=== PATIENT | male | born 2005 | race Caucasian/White ===

== ENCOUNTER 2025-07-12 15:37 | Emergency (ER) | payer BC, SELFPAY ==
--- OUTSIDE RECORDS SUMMARY | 2025-07-12 15:38 | XMS_ITS | Encounter Summary ---
Author Organization [place] Address [facility] [place] [address] Care Team Providers Care Belt Glass Sander Name Role Phone Libby Juan MD Primary Care Provider Unavailable Clinic, [facility] Primary Care Pr ovider Unavailable Encounter Details Date Type Department Care Team (Late st Contact Info) Description 2003 [facility] [address] [place] [address] Libby Juan MD NO LONGER AT [facility]/UNABLE TO LOCATE 10/31/23 ER ENCOUNTER (Primary Dx) Social History Tobacco Use Types Packs/Day Years Used Date Smoking Tobacco: Former Alcohol Use Standard Drinks/Week Comments Not Asked 0 (1 standard drink = 0.6 oz pur e alcohol) Sex and Gender Information Value Date Recorded Sex Assigned at Not on file 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 HISTORY OF PRESENT ILL NESS: A 7-month-old male patient started vomiting at 9 a.m. yesterday. Has had two or three vomitin g spells in the last 24 hours and two to three episodes of loose watery diarrhea stool. He developed new onset fever within the last 24 hours as well. His 2 1/2-year-old brother is also being seen at the same time with an upper respiratory tract viral illness associated with high fever and is influen za positive. Ramy in general is still fairly happy and smiling. He has had runny nose and light c ough as well. He is taking Pedialyte without difficulty. He is having wet diapers and has had no re cent emesis. He comes in to the Emergency Department along with his brother for workup. REVIEW OF S YSTEMS: There have been wet diapers. He is taking down Pedialyte. Mother says he also has been fidencio ping down some solid foods in the last few hours. He does have intermittent fever. He does have run ny nose and cough. Remainder of the review of systems is negative. Past medical history is negative . Immunizations are up to date. Medications are none other than Tylenol. ALLERGIES: NONE. SOCIAL HISTORY: Here with mother, grandmother, and his sick sibling brother who is 2 1/2 years of age. He is not in day care. EXAM: Temperature is 102.0, respiratory rate 32, pulse 132. GENERAL: He is re sting comfortably and is smiling. EYES: Pupils are equal and reactive to light. Extraocular muscle s are intact. OROPHARYNX some mild erythema. TYMPANIC MEMBRANES normal. CHEST: Lungs are clear. C ARDIOVASCULAR: Heart is in a regular rate and rhythm. ABDOMEN is benign. : Normal male external genitalia, noncircumcised. Testicles descended bilaterally. No evidence of significant dermatitis. HOSPITAL COURSE: Influenza testing was performed which is positive. His RSV was negative. Given the fact that he is under 1 year of age. He is not a candidate for amantadine or Tamiflu. FINAL ELICEO GNOSIS: Influenza A. DISPOSITION PLAN: Increase fluids, Tylenol and/or ibuprofen p.r.n. fever. Re turn to the Emergency Department signs or symptoms of increased respiratory distress or dehydration a s described. [id number] _ FIFI TURNER MD MT: Document: [id number] [place], [place] Name: RAMY BRAN EMERGENCY ROOM ENCOUNTER Page 2 of 2 LCN: JACKIE DSC: 2003 [facility] Name: MR#: : Admit Date: RAMY BRAN [id number] 2003 2003 Doctor: SARA TURNER MD EMERGENCY ROOM ENCOUNTER Page 1 of 2 Electronically filed by Jyothi Hubbard 4:16 PM documented in this encounter Plan of Treatment Not on file documented as of this encounter Visit Diagnoses Diagnosis ER ENCOUNTER- Primary documented in this encounter Care Teams Belt Glass Sander Relationship Specialty Start Date End Date Libby Juan MD NO LONGER AT [facility]/UNABLE TO LOCATE 10/31/23 PCP - General 03 08/23/21 [facility], [facility] NO LONGER AT [facility]/UNABLE TO LOCATE 10/31/23 PCP - General 08/24/21 02/18/23 documented as of this encounter
--- OUTSIDE RECORDS SUMMARY | 2025-07-12 15:38 | XMS_ITS | Clinical Summary ---
Author Organization [facility] Address [address] [place] [address]. [place] [address] Care Team Providers Care Overcoiler Name Role Phone Unavailable Primary Care Provider Unavailabl e Allergies Active Allergy Reactions Criticality Noted Date Comments No Known Allergies 11/27/2004 Medications TYLENOL DROPS SOLN 100 MG/ML OR prn 0 3 Active ALBUTEROL SULFATE 2 MG/5ML OR SYRP 2 cc po TID for cough, wheeze 3 oz 0 4 Active DUONEB 2.5-0.5 MG/3ML IN SOLN 1 vial now 1 0 5 Active ALBUTEROL SULFATE 0.083 % IN NEBU 1 vial via neb q 4-6 hours PRN 50 1 5 Active POLYTRIM 21428-3.1 UNIT/ML-% OP SOLN 2 drops to affected eye qid times 7 days qs 0 5 Active naloxone (NARCAN) 4 MG/0.1ML nasal spray [place] 1 spray (4 mg) into one nostril alternating nostrils once as needed for opioid reversal every 2-3 minutes until assistance arrives 0.2 mL 1 Active Immunizations Immunization Administration Dates Next Due Comvax (HIB/HepB) 07/29/2004,2003,07/12/20 03 DTAP (<7y) 07/29/2004,2003,2003 Influenza (IIV3) PF 01/14/2007 MMR (MMRII) 07/29/2004 Pneumococcal (PCV 7) 04/27/2005,2003,07/12 Poliovirus, inactivated (IPV) 07/29/2004, 003,2003 Varicella (Varivax) 07/29/2004 Social History Tobacco Use Types Packs/Day Years Used Date Smoking Tobacco: Former Alcohol Use Standard Drinks/Week Comments Not Asked 0 (1 standard drink = 0.6 oz pur e alcohol) Adolescent Education Answer Date Record ed Getting School Help Needed Not on file 08/30 Sex and Gender Information Value Date Recorded Sex Assigned at Not on file 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 Gender Identity Not on file Sexual Orientation Not on file Last Filed Vital Signs Vital Sign Reading Time Taken Comments Blood Pressure 113/69 08/24/2021 1:45 AM CDT Pulse 95 08/24/2021 1:45 AM CDT Temperature 36.7 C (98 F) 08/23/2021 11:28 PM CDT Respiratory Rate 13 08/24/2021 1:30 AM CDT Oxygen Saturation 94% 08/24/2021 1:45 AM CDT Inhaled Oxygen Concentration - - Weight 15.6 kg (34 lb 5 oz) 12/23/2006 1:[address] Height 99.1 cm (3' 3) 12/23/2006 1:00 PM ECMO SPECIALIST Body Mass Index 15.86 12/23/2006 1:00 PM ECMO SPECIALIST Plan of Treatment Not on file Insurance * Guarantor: DIANNE Account Type Relation to Patient Date of Phone Billing Address Personal/Family [facility], [place] [address] [facility]
--- OUTSIDE RECORDS SUMMARY | 2025-07-12 15:38 | XMS_ITS | Clinical Summary ---
Author Organization [facility] Address [address] [place] [id number] Care Team Providers Care Interventional Tech Name Role Phone [facility] Primary Care Provider Unavailabl e Allergies No known active allergies Medications escitalopram oxalate 5 mg tabletIndication s:Anxiety Take 1 Tablet (5 mg) by mouth once daily in the morning. 30 Tablet 11 02/20/2025 4:34 PM CDT 02/19/2025 Active Active Problems Problem Noted Date Diagnosed Date ADHD (attention deficit hyperactivity disorder) 01/05/2011 Anxiety disorder 01/05/2011 Resolved Problems Problem Noted Date Diagnosed Date Resolved Date Opiate overdose, accidental or unintentional, initial encounter 07/20/2022 07/20/2022 Assessment & Plan (07/20/2022 9:07 AM CDT): Patient reports this was an accidental OD when he was doing stupid stuff with my friends. He denies Opiate dependence. He is not suicidal and states this is not a concern. Problem resolved. School problem 06/22/2013 07/20/2022 Overview (06/22/2013): 06/22/13 Has had PDD diagnosis in past. Per mom, significant changes since previous evaluation. Still has IEP at school for behavior issues. Per mom's report and chart review, also had Attention Deficit Hyperactivity Disorder and anxiety diagnoses in past. No medications. No counseling. Evaluation several years ago. Still some difficulties with school. Recommend evaluation with Dr Noriega for Attention Deficit Hyperactivity Disorder, QEEG. Encounters for other specifi ed administrative purpose(V68.89) 07/06/2012 07/20/2022 Encounters Date Type Department Care Team Description 2025 4:30 PM CDT Nurse/Clinic Staff Only [facility] [address] [place] [address] Immunization/Injectio n (2nd HPV); Immunization/Injectio n 2025 Travel from Last 3 Months Immunizations Immunization Administration Dates Next Due AMB Influenza, IIV3 (Age >=3 years) Preserve Free (Flu Clinic Only) 08/27/2011 AMB Influenza, IIV3 (Age >=3 years)(Flu Clinic Only) 08/10/2013,11/27/2012,09/03/2010 DTaP 07/05/2008, 4,2003,07/12 HIB-HepB (Comvax) 07/29/2004,2003,07/12/20 03 HPV 9 (Gardasil 9) 2025,02/19/2025 Hepatitis A (Peds) 07/14/2018,08/16/2016 Inactivated Polio Vaccine 07/05/2008,,2003,07/12 Influenza A (H1N1), Inactivated 11/05/2009,10/04 Influenza A (H1N1), Inactiva chris (Age >=3 Years) 10/04/2009 Influenza A (H1N1), Live Intranasal 11/05/2009 Influenza Virus, Unspecified 01/14/2007 Influenza, IIV3 (Age >=3 years) 09/12/2007,12/23,09/28/2004 Influenza, IIV4 08/05/2015 MENINGOCOCCAL VACCINE 2 VIAL 2MO-55YO (MENVEO) 07/05/2019,08/16/2016 MMR 07/05/2008,07/29/2004 Pneumococcal conj 7-Valent (Prevnar 7) 5,2003,2003 Tdap 08/16/2016 Varicella Vaccine 07/05/2008,07/29/2004 Family History Medical History Relation Name Comments Genetic Other neg Relation Name Status Comments Other Social History Tobacco Use Types Packs/Day Years Used Date Smoking Tobacco: Never Smokeless Tobacco: Never Tobacco Cessation:Counseling Given: Not Answered Comments:non smoking home Alcohol Use Standard Drinks/Week Comments No 0 (1 standard drink = 0.6 oz pur e alcohol) PHQ-2 Answer Date Recorded PHQ-2 TOTAL SCORE 3 02/19/2025 Social Connections Answer Date Recorded Do you often feel lonely or isolated from those around you? 0 02/18/2025 Financial Resource Strain Answer Date R ecorded Difficulty of Paying Living Expenses 3 02/18/2025 Difficulty of Paying Living Expenses Not on file 02/18/2025 Food Insecurity Answer Date Recorded Do you worry your food will run out before you are able to buy more? 1 02/18/2025 Transportation Needs Answer Date Record ed Does lack of transportation keep you from medica l appointments? 1 02/18/2025 Does lack of transportation keep you from work, meetings or getting things that you need? 1 02/18/2025 Housing Stability Answer Date Recorded What is your housing situation today? 1 02/18/2025 Utilities Answer Date Recorded Do you have trouble paying f or utilities (for example, heat, electricity, water, phone)? 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 Gender Identity Not on file Sexual Orientation Not on file Obstetrics History Last Filed Vital Signs Vital Sign Reading Time Taken Comments Blood Pressure 136/80 02/19/2025 2:24 PM CDT Pulse 76 02/19/2025 2:24 PM CDT Temperature 36.6 C (97.8 F) 11/02/2019 1:42 PM SCHOOL PSYCHOMETRIST Respiratory Rate 14 07/20/2022 8:48 AM CDT Oxygen Saturation 98% 02/26/2016 10: 41 AM CDT Inhaled Oxygen Concentration - - Weight 96.5 kg (212 lb 12.8 oz) 02/19/2025 2:24 PM CDT Height 184.1 cm (6' 0.48) 02/19/2025 2:24 PM CD T Body Mass Index 28.48 02/19/2025 2:24 PM CDT Plan of Treatment Health Maintenance Due Date Last Done Comments COVID-19 vaccine series (1 - 2023- season) 2024 Influenza Vaccine (#1) 2025 5, 08/10/2013, 11/27/2012, Additional history exists HPV series for age 9-26 (3 - Male 3-dose series) 08/21/2025 2025, 02/19/2025 BMI (ht and wt on same day) for age 18+ 02/19/2026 02/19/2025, 07/20/2022, 08/26/2021 Depression screening for age 12+ 02/20/2026 02/20/2025, 02/19/2025, 07/20/2022, Additional history exists Tetanus booster 08/16/2026 08/16/2016 Hepatitis B series for 19+ Completed 07/29, 2003, 2003 Pneumococcal series for age 6-49 Aged Out 04/27/2005, 2003, 2003 No longer eligible based on patient's age to complete this topic HIV for age 15-65 Completed 02/19/2025 Hepatitis C screening for age 18-79 Completed 02/19/2025 Procedures Procedure Name Priority Date/Time Associated Diagnosis Comments ANTI HIV 1/2 Routine 02/19/2025 3:13 PM CDT Screening for HIV (human immunodeficiency virus) ANTI HCV Routine 02/19/2025 3:13 PM CDT Encounter for hepatitis C screening test for low risk patient from Last 3 Months or Most Recently Relevant to Health Maintenance Results * ANTI HCV (02/19/2025 3:13 PM CDT) HEPATITIS C ANTIBODY NON-REACTI VE NON-REACT MIYA [employer] Comment: HCV antibody was non-reactive. There is no laboratory evidence of HCV infection. In most cases, no further action is required. However, if recent HCV exposure is suspected, a test for HCV RNA (test code 20949) is suggested. For additional information please refer to http://education.MixGenius/faq/TWZ97u4 (This link is being provided for informational/ educational purposes only.) Blood BLOOD SPECIMEN / Unknown 02/19/2025 3:13 PM CDT 02/19/2025 3:14 PM CDT Prashant Cobb MD SEND OUTS Final Resul t [employer] [facility] [address] [place] [address], [employer] [address] [place] [address] * ANTI HIV 1/2 (02/19/2025 3:13 PM CDT) [facility] HIV AG/AB, 4TH GEN NON-REACT MIYA NON-REACT MIYA [employer] Comment: HIV-1 antigen and HIV-1/HIV-2 antibodies were not detected. There is no laboratory evidence of HIV infection. PLEASE NOTE: This information has been disclosed to you from records whose confidentiality may be protected by state law. If your state requires such protection, then the state law prohibits you from making any further disclosure of the information without the specific written consent of the person to whom it pertains, or as otherwise permitted by law. A general authorization for the release of medical or other information is NOT sufficient for this purpose. For additional information please refer to http://education.TravelMuse.Whisk/faq/UFJ866 (This link is being provided for informational/ educational purposes only.) The performance of this assay has not been clinically validated in patients less than 2 years old. Blood BLOOD SPECIMEN / Unknown 02/19/2025 3:13 PM CDT 02/19/2025 3:14 PM CDT Prashant Cobb MD SEND OUTS Final Resul t [employer] [facility] [address] [facility] [place] [address], [place] [phone] [employer] [address] [place] [address] from Last 3 Months or Most Recently Relevant to Health Maintenance Insurance [employer] Advance Directives * Full Code (Latest Code Status on File) Date Activated Date Inactivated Comments 09/26/2007 9:26 AM 09/26/2007 4:48 PM Care Teams Interventional Tech Relationship Specialty Start Date End Date Jose Maria Luevano PCP - General 02/20/18
[2025-07-12 15:39] VITALS: BP 133/84; PULSE 82; RESP 18; TEMP 37; O2SAT 99; BMI 30.7
--- NOTE | 2025-07-12 17:03 | ED.GENADULT ---
HPI - General Adult General Date Seen: 07/12/25 Chief complaint: Laceration/Wound Stated complaint: busted lip Time Seen by Provider: 07/12/25 16:01 History of Present Illness HPI narrative: this is a pleasant generally healthy 20-year-old male. He is pretty confident he is up-to-date with his tetanus and he believes he just had his shots updated a few months ago when he had a checkup. He presents to the ER today with an accidental laceration to the right side of his upper lip. He was working under his car today when arrange slipped and hit him in the upper lip. He suffered a vertical laceration in the upper lip that crosses from the skin onto the pink part of the lip. There is a small bump on the mucosal surface of the upper lip but not really a through and through laceration. Fortunately, he does not think he injured any of his teeth or his facial bones. No loss of consciousness. Bleeding was controlled easily by direct pressure. Because the wound was gaping, his family encouraged him to come to the ER to get stitches. Related Data Home Medications ?Medication ?Instructions ?Recorded ?Confirmed No Known Home Medications 07/12/25 07/12/25 Allergies Allergy/AdvReac Type Severity Reaction Status Date / Time No Known Drug Allergies Allergy Verified 07/12/25 15:43 Exam Narrative: Exam Narrative: Constitutional: Appears well-developed and well-nourished. Alert. Conversant. Non toxic. HENT: Head: No depressed skull fracture, Raccoon Eyes, Barton's sign Nose: Nose normal. Mouth/Throat: Oral mucosa is clear and moist. no trismus. Pharynx normal. Tonsils symmetric. No tonsillar enlargement, erythema, or exudate. Teeth are normal in appear to be uninjured. Gums are normal. On the upper lip there is a small mucosal scratch but not really a laceration. On the external portion of the upper lip, to the right of midline, there is a 1.5 cm vertical laceration. The lateral edge of the wound is little bit macerated with some small bits of skin. The wound does cross the vermilion border onto the pink part of the lip. The wound is gaping about 3-4 mm at the center of the wound. No other injuries. Eyes: Conjunctivae normal. EOM normal. Pupils equal, round, and reactive to light. No scleral icterus. Neck: Normal range of motion. Neck supple. No tracheal deviation present. Cardiovascular: Normal rate, regular rhythm. Normal cap refill Pulmonary/Chest: Effort normal. No stridor. No respiratory distress. Musculoskeletal: RUE: Normal range of motion. No tenderness. No deformity LUE: Normal range of motion. No tenderness. No deformity RLE: Normal range of motion. No edema. No tenderness. No deformity LLE: Normal range of motion. No edema. No tenderness. No deformity Neurological: Alert and oriented to person, place, and time. Normal strength. CN II-VII intact. No sensory deficit. GCS eye subscore is 4. GCS verbal subscore is 5. GCS motor subscore is 6. Normal coordination Skin: Skin is warm and dry. No rash noted. No pallor. Normal capillary refill. Psychiatric: Normal mood. Normal affect. Const: Vital Signs, click to edit/add: Vital Signs - 24 hr 07/12/25 15:39 Temperature 98.6 F Pulse Rate [Right Pulse Oximeter] 82 Respiratory Rate 18 Blood Pressure [Ri ght Upper Arm] 133/84 Pulse Oximetry 99 Oxygen Delivery Me thod Room Air Course Vital Signs Vital signs: Initial Vital Signs Temperature 98.6 F 07/12/25 15:39 Temperature Source Temporal Artery Scan 07/12/25 15:39 Pulse Rate 82 07/12/25 15:39 Pulse Rhythm Regular 07/12/25 15:39 Pulse Strength 3+ Normal 07/12/25 15:39 Respiratory Rate 18 07/12/25 15:39 Blood Pressure 133/84 07/12/25 15:39 Blood Pressure Mean 100 07/12/25 15:39 Blood Pressure Position Sitting 07/12/25 15:39 Pulse Oximetry 99 07/12/25 15:39 Oxygen Delivery Method Room Air 07/12/25 15:39 Vital Signs Temperature 98.6 F 07/12/25 15:39 Pulse Rate 82 07/12/25 15:39 Respiratory Rate 18 07/12/25 15:39 Blood Pressure 133/84 07/12/25 15:39 Pulse Oximetry 99 07/12/25 15:39 Oxygen Delivery Method Room Air 07/12/25 15:39 Temperature 98.6 F 07/12/25 15:39 Pulse Rate 82 07/12/25 15:39 Respiratory Rate 18 07/12/25 15:39 Blood Pressure 133/84 07/12/25 15:39 Pulse Oximetry 99 07/12/25 15:39 Oxygen Delivery Method Room Air 07/12/25 15:39 Medical Decision Making MDM Narrative Medical decision making narrative: Findings and exam are consistent with an Upper lip laceration which was repaired as noted above. fortunately no evidence for any intraoral injury. This is not through and through. . No dental injury. There is no evidence at this time to suggest any associated fracture or foreign body. There is no evidence to suggest intracranial injury and patient is neurologically in tact. The patient is to follow up for suture removal as instructed in 5-7 days if they don't dissolve and fall out on their own. Indications to seek urgent reevaluation and signs of infection (including but not limited to increasing pain, redness, swelling, fevers, and drainage) were reviewed. Tetanus is up-to-date. This is a clean and noncontaminated wound in which prophylactic antibiotics are not indicated. An understanding of the discharge instructions and need for follow up were verbally confirmed. discussed sticking to soft/clear liquid diet for the next few days. He will try to avoid vaping sweet does not burn his lip while it is numb. Discharge Plan Discharge Clinical Impression: Laceration of lip Patient Disposition: Home, Self-Care Condition: Stable Instructions: Facial Laceration (ED) Additional Instructions: as we discussed, please be very gentle with her lip this week. The stitches that we placed our fragile. The stitches should dissolve and fall out in about 5-7 days. If the stitches have not fallen out by 7 days, please come back to the ER so we can evaluate your wound and remove the stitches. Please stick to soft foods and liquids for the next couple of days. Avoid any foods that are crunchy or chewy because we do not want food gets stuck in your laceration or unnecessary pressure on your lip to pull the wound open. Watch for signs of infection. If you notice redness, swelling, pus draining from her wound, or if you have any other concerns, please come back to the ER right away to be rechecked. Prescriptions: No Action No Known Home Medications Stand Alone Forms: MyHealth Info Instructions Procedures Laceration upper lip laceration: Pre procedure diagnosis: upper lip laceration Verification/time out: correct patient and correct procedure Geophysics Teacher 1, if any: discussed options. Patient agrees to go ahead with wound closure which we Site: lip ( Right side of upper lip. Vertical laceration that does cross the vermilion border.) Side (If applicable): right Size (cm): 1.5 Description: linear Depth: simple, single layer ( The lateral wound edge was macerated with a couple of small Sub mm bits of skin and tissue that made it difficult to get good wound closure. We did debride the tissue to make sure we had a clean straight wound.) Local Anesthetic: lidocaine 1% and with epi Amount of anesthesia used (mL): 2 Size (cm): 5-0 ( Fast-absorbing gut. I buried 1 suture with the knot under the skin at the vermilion border. I placed 3 simple interrupted sutures in the skin portion superior to the vermilion border. These were not buried.) Number of sutures: 4 Technique: simple, interrupted
== END 2025-07-12 17:25 | disposition home or self-care (01) ==
LOC: ED 17:14
PROVIDERS: Emergency Provider Emergency Medicine
DX: S01.511A Laceration without foreign body of lip, initial encounter (principal); W22.8XXA Striking against or struck by other objects, initial encounter
CPT/HCPCS: 12011; 99282; 99283